=== PATIENT | female | born 1990 | race Caucasian/White ===

== ENCOUNTER 2022-09-25 09:37 | Outpatient (CLI) | payer BC, SELFPAY ==
[2022-09-25 14:21] LABS: Chloride* 104 mmol/L (96-114)
[2022-09-25 14:22] LABS: Albumin* 4.4 g/dL (3.3-5.0); Sodium* 139 mmol/L (135-149)
[2022-09-25 14:25] LABS: Alanine Aminotransferase* 18 U/L (4-35); Alkaline Phosphatase* 66 U/L (40-150); Aspartate Amino Transferase* 22 U/L (12-35); Bilirubin Total* 0.4 mg/dL (0.1-1.5); Blood Urea Nitrogen* 7 mg/dL (5-24); Calcium* 9.5 mg/dL (8.4-10.6); Carbon Dioxide* 29 mmol/L (20-32); Creatinine* 0.7 mg/dL (0.5-1.5); Estimated Glomerular Filt Rate 117 ml/min; Glucose* 84 mg/dL (60-115); Total Protein* 7.1 g/dL (6.0-8.3)
[2022-09-25 15:43] LABS: Vitamin D 25 Hydroxy* 31 ng/mL (30-80)
== END 2022-09-25 09:38 | disposition home or self-care (01) ==
PROVIDERS: PCP Family Medicine; Visit Provider Family Medicine
DX: Z00.00 Encounter for general adult medical examination without abnormal findings (principal); R53.83 Other fatigue; R22.1 Localized swelling, mass and lump, neck
CPT/HCPCS: 80053; 82306; 84443

== ENCOUNTER 2022-09-27 10:31 | Outpatient (CLI) | payer BC, SELFPAY ==
--- NOTE | 2022-09-27 10:45 | CRLHL7_ITS ---
For Patients: As a result of the Century Cures Act, medical imaging exams and procedure reports are released immediately into your electronic medical record. You may view this report before your referring provider. If you have questions, please contact your health care provider. INDICATION: fullness of neck COMPARISON: none TECHNIQUE: Zavala scale and color Doppler images were acquired of the thyroid gland. FINDINGS: The thyroid gland demonstrates normal uniform echogenicity and has a smooth outer contour. The right lobe measures 5.0 x 1.6 x 1.9 cm and the left lobe measures 5.2 x 1.3 x 1.5 cm in size. There are no suspicious masses or nodules. The color Doppler images demonstrate normal vascularity. There is no evidence of cervical lymphadenopathy or parathyroid mass. IMPRESSION: Normal thyroid ultrasound. Dictated by Rojelio Nolasco MD @ 09/27/2022 12:42:14 PM (Electronically Signed)
== END 2022-09-27 10:32 | disposition home or self-care (01) ==
LOC: US 10:32
PROVIDERS: PCP Family Medicine; Visit Provider Family Medicine
DX: R22.1 Localized swelling, mass and lump, neck (principal)
CPT/HCPCS: 76536